=== PATIENT | male | born 1980 | race Caucasian/White ===

== ENCOUNTER → 2020-02-15 | Day surgery (SDC) | payer OTHER ==
[~2020-02-15] MED LIST: ANUSOL-HC CREAM30 GM PR; BACTRIM DS TAB1 EACH PO; BACTROBAN OINT22 GM TOP; KEFLEX CAP 500500 MG PO; NORCO 5-325 TA1 EACH PO; PERCOCET 10-321 EACH PO; ROBAXIN 750 MG750 MG PO
== END | disposition home or self-care (01) ==
LOC: OR 06:15
PROVIDERS: Surgery
PROC: 0DJD8ZZ Inspection of Lower Intestinal Tract, Via Natural or Artificial Opening Endoscopic (ICD-10-PCS; principal; 2020-02-15 08:15)
DX: K60.2 Anal fissure, unspecified (principal); N40.0 Benign prostatic hyperplasia without lower urinary tract symptoms; F17.210 Nicotine dependence, cigarettes, uncomplicated
CPT/HCPCS: J2704; J7120